=== PATIENT | female | born 1995 | race Caucasian/White ===

== ENCOUNTER 2016-11-23 02:20 | Emergency (ER) | payer OTHER ==
[2016-11-23 04:08] LABS: HEMOGLOBIN 13.3 gm/dl (12.3-15.3); RED BLOOD COUNT 4.88 M/UL (4.00-5.10)
[2016-11-23 05:17] LABS: BUN/CREATININE RATIO 14 (0-10)
== END 2016-11-23 06:51 | disposition home or self-care (01) ==
LOC: ER1 02:20
PROVIDERS: Physician Assistant
DX: R10.32 Left lower quadrant pain (principal); R11.0 Nausea; D72.829 Elevated white blood cell count, unspecified; R30.0 Dysuria; R00.0 Tachycardia, unspecified; Z88.0 Allergy status to penicillin; Z88.2 Allergy status to sulfonamides
CPT/HCPCS: 80053; 81001; 83690; 84703; 85025; 87086; 96361; 96374; 99284; J2405; J7030; J7050; Q9962

== ENCOUNTER → 2016-11-24 | Outpatient (CLI) | payer OTHER ==
[2016-11-24 16:50] LABS: HEMOGLOBIN 12.4 gm/dl (12.3-15.3); RED BLOOD COUNT 4.57 M/UL (4.00-5.10)
[2016-11-24 16:56] LABS: WHITE BLOOD COUNT 10.5 K/UL (4.5-11.0)
== END ==
LOC: LAB 16:15
PROVIDERS: Physician Assistant
DX: D72.829 Elevated white blood cell count, unspecified (principal); R10.9 Unspecified abdominal pain
CPT/HCPCS: 36415; 85025

== ENCOUNTER 2020-05-31 12:56 | Outpatient (CLI) | payer OTHER ==
[~2020-05-31 12:56] MED LIST: IBUPROFEN800 MG PO; ONDANSETRON ODT4 MG PO
[2020-06-05] MEDS ORDERED: HYDROCODONE-AC1 EAC1 PO (20:18)
[2020-06-05] MEDS ORDERED: IBUPROFEN800 MG PO (20:18)
[2020-06-05] MEDS ORDERED: DOCUSATE SODIU100 MG PO (20:18)
== END 2020-05-31 15:13 | disposition home or self-care (01) ==
LOC: GENOP 12:56
DX: O26.893 Other specified pregnancy related conditions, third trimester (principal); R10.9 Unspecified abdominal pain; Z3A.39 39 weeks gestation of pregnancy
CPT/HCPCS: G0463

== ENCOUNTER 2020-06-05 05:21 | Inpatient (IN) | payer OTHER ==
[~2020-06-05] VITALS: Ht 167.6 cm; Wt 113.4 kg
[2020-06-05] MEDS ORDERED: PRENATAL TABLE1 EAC1 PO (07:55)
[2020-06-05 08:23] LABS: HEMOGLOBIN 13.5 gm/dl (12.3-15.3); RED BLOOD COUNT 5.05 M/UL (4.00-5.10); WHITE BLOOD COUNT 14.6 K/UL (4.5-11.0)
[2020-06-05] MEDS ORDERED: HYDROCODONE-AC1 EAC1 PO (20:18)
[2020-06-05] MEDS ORDERED: IBUPROFEN800 MG PO (20:18)
[2020-06-05] MEDS ORDERED: DOCUSATE SODIU100 MG PO (20:18)
[2020-06-06 07:12] LABS: HEMOGLOBIN 11.6 gm/dl (12.3-15.3)
== END 2020-06-07 16:43 | disposition home or self-care (01) | DRG 788 ==
LOC: OB 05:21
PROVIDERS: ADMIT Obstetrics & Gynecology
PROC: 10D00Z1 Extraction of Products of Conception, Low, Open Approach (ICD-10-PCS; principal; 2020-06-05 20:34)
DX: O61.9 Failed induction of labor, unspecified (principal); O99.214 Obesity complicating childbirth; E66.9 Obesity, unspecified; Z3A.39 39 weeks gestation of pregnancy; Z37.0 Single live birth
CPT/HCPCS: 36415; 82800; 85014; 85018; 85025; C9113; J0690; J1170; J1885; J2001; J2250; J2405; J2590; J2704; J2765; J2795; J3010; J7120

== ENCOUNTER 2021-06-13 12:57 | Emergency (ER) | payer OTHER ==
[~2021-06-13 12:57] MED LIST changes: +DOCUSATE SODIU100 MG PO; +HYDROCODONE-AC1 EAC1 PO; +PRENATAL TABLE1 EAC1 PO
[2021-06-13] MEDS ORDERED: IBUPROFEN600 MG PO (14:59)
== END 2021-06-13 15:40 | disposition home or self-care (01) ==
LOC: ER1 12:57
DX: S93.402A Sprain of unspecified ligament of left ankle, initial encounter (principal); S93.401A Sprain of unspecified ligament of right ankle, initial encounter; S93.601A Unspecified sprain of right foot, initial encounter; S93.602A Unspecified sprain of left foot, initial encounter; Z88.0 Allergy status to penicillin; W19.XXXA Unspecified fall, initial encounter
CPT/HCPCS: 73610; 73630; 99283

== ENCOUNTER → 2021-06-23 | Outpatient (CLI) | payer OTHER ==
[~2021-06-23] MED LIST changes: +IBUPROFEN600 MG PO
== END ==
LOC: CT 09:35
DX: S93.324A Dislocation of tarsometatarsal joint of right foot, initial encounter (principal); S92.241A Displaced fracture of medial cuneiform of right foot, initial encounter for closed fracture
CPT/HCPCS: 73700